=== PATIENT | male | born 1970 | race Caucasian/White ===

== ENCOUNTER 2020-03-25 11:55 | Observation (INO) | payer BC, OTHER, SELFPAY ==
[~2020-03-25] VITALS: Ht 185.4 cm; Wt 175.6 kg
--- NOTE | 2020-03-25 12:46 | NUR ---
PT AMBULATORY TO ROOM 6 W/ NO COMPLAINTS TODAY. STATES YESTERDAY HAD CP AND HTN. FIRE WAS CALLED AND PT GOT BP CONTROLLED AND NO LONGER HAS SX. STATES HE IS HERE TODAY "TO MAKE MY HAPPY". DENIES ANY SX AT THIS TIME. MONITORS APPLIED. PT RESTING ON GURMOHAN. NADN. VSS. PIV INITIATED.
--- NOTE | 2020-03-25 12:56 | NUR ---
REPORT GIVEN TO CHANEL DOZIER.
--- NOTE | 2020-03-25 13:24 | NUR ---
PT RESTING, WATCHING TV. CALL LIGHT IN REACH. DENIES CP
[2020-03-25 13:53] LABS: BASOPHILS % (AUTO) 2 % (0-1); EOSINOPHILS % (AUTO) 1 % (1-7); LYMPHOCYTES % (AUTO) 29 % (22-44); MEAN CORPUSCULAR HEMOGLOBIN 29.6 pg (27.5-34.5); MEAN CORPUSCULAR HGB CONC 33.3 g/dL (33.2-36.2); MEAN PLATELET VOLUME 8.3 fL (7.4-10.4); MONOCYTES % (AUTO) 6 % (2-9); NEUTROPHILS % (AUTO) 62 % (42-75); PLATELET COUNT 206 x10^3/uL (130-400); RED BLOOD COUNT 5.38 x10^6/uL (4.38-5.82); RED CELL DISTRIBUTION WIDTH 13.8 % (9.4-14.8)
[2020-03-25] MEDS ORDERED: ASPIRIN 81 MG TABLET CHEW ONE (13:53)
[2020-03-25 13:56] LABS: MD NO
[2020-03-25] MEDS ORDERED: METO-93 PO (13:58)
[2020-03-25] MEDS ORDERED: TELM1TAB42 PO (13:58)
--- NOTE | 2020-03-25 13:59 | NUR ---
ASSUMED CARE OF PATIENT. REPORT GIVEN TO CHANEL KEITH
[2020-03-25] MEDS ORDERED: ASPIRIN 81 MG TABLET CHEW PO ONE (14:00)
[2020-03-25 14:05] LABS: ALANINE AMINOTRANSFERASE 56 U/L (12-78); ALBUMIN 3.8 g/dL (3.4-5.0); ANION GAP 8 mmol/L (5-15); CHLORIDE 107 mmol/L (98-107); CREATININE 0.97 mg/dL (0.7-1.3)
[2020-03-25 14:09] LABS: ALKALINE PHOSPHATASE 73 U/L (45-117); BILIRUBIN,TOTAL 0.4 mg/dL (0.2-1.0); TOTAL PROTEIN 7.3 g/dL (6.4-8.2); TROPONIN I 0.024 ng/mL (0.000-0.045)
--- NOTE | 2020-03-25 14:53 | NUR ---
DR GIRALDO HAS UPDATED PATIENT. VS STABLE. LOG SAWYER ON. CALL LIGHT IN PLACE. WILL CONTINUE TO MONITOR.
--- NOTE | 2020-03-25 15:22 | NUR ---
PT WATCHING TV IN ROOM. MANAGER ORACLE RETAIL ON. NSR NOTED. CALL LIGHT IN PACE. WILL CONTINUE TO MONITOR.
--- NOTE | 2020-03-25 16:03 | NUR ---
LAB DRAWN. PT WATCHING TV IN ROOM. NO ACUTE DISTRESS NOTED. WILL CONTINUE TO MONITOR.
[2020-03-25 16:11] LABS: TROPONIN I 0.033 ng/mL (0.000-0.045)
--- NOTE | 2020-03-25 17:04 | NUR ---
TASK RN ASSISTING PRIMARY RN RAMONA. PT RESTING COMFORTABLY ON ED GURNEY, TALKING ON CELL PHONE. DENIES CP, SOB OR ANY PAIN. VSS. SR ON MONITOR. DR. GIRALDO HAS RE-EVALUATED PT, TO BE ADMITTED PER MD, PT AGREES TO POC AND VERBALIZED UNDERSTANDING. PT REQUESTING NICOTINE PATCH, TO DISCUSS WITH DR. GIRALDO. CALL LIGHT IN REACH. FALL PRECAUTIONS IN PLACE. DENIES NEED TO USE RESTROOM. A&OX4.
--- NOTE | 2020-03-25 17:19 | NUR ---
DISCUSSED PT REQUEST FOR NICOTINE PATCH WITH PRIMARY CHANEL GREENE AND DR. MCCOY. RAMONA RN TO FOLLOW UP WITH ERP. REPORT AND CARE BACK TO PRIMARY CHANEL GREENE
[2020-03-25] MEDS ORDERED: SODIUM CHLORIDE FLUSH 10ML SYR IVF PRN (17:30)
[2020-03-25] MEDS ORDERED: NICOTINE 21 MG/24 HR PATCH.TD24 TD ONE (18:00)
[2020-03-25] MEDS ORDERED: NICOTINE 21 MG/24 HR PATCH.TD24 ONE (18:02)
--- NOTE | 2020-03-25 18:10 | NUR ---
TASK RN ASSISTING PRIMARY CHANEL GREENE. PT MEDICATED PER REQUEST WITH NICOTINE PATCH TO RIGHT ARM. AMBULATED TO RESTROOM WITH STEADY GAIT. RESTING COMFORTABLY BACK ON ED GURNEY. PT REQUESTING FOOD, DISCUSSED WITH DR. GIRALDO. CARDIAC DIET RQUESTED FROM DIET OFFICE PER MD ORDER. VSS. SR ON MONITOR. PT DENIES ANY PAIN, CP, SOB. WATCHING TV. CALL LIGHT IN REACH. FALL PRECUATIONS IN PLACE. REPORT AND CARE BACK TO PRIMARY CHANEL GREENE. CONTINUE AWAITING ROOM ON FLOOR.
--- NOTE | 2020-03-25 18:41 | NUR ---
TASK RN. ADMITTING PROVIDER AT BEDSIDE FOR EVALUATION. PROVIDED MEAL TRAY PER ERP AND ADMIT MD FINK. PT EATING WITHOUT ANY DIFFICULTY. VSS. SR ON MONITOR. DENIES ANY CP, SOB. REPORT AND CARE TO PRIMARY RN RAMONA.
--- NOTE | 2020-03-25 18:50 | NUR ---
TASK RN ASSISTING PRIMARY RN RAMONA. ATTEMPT X1 TO CALL REPORT ON PT
[2020-03-25 19:34] VITALS: BP 139/67
[2020-03-25] MEDS ORDERED: LIDODERM 5% PATCH TD PRN (21:00)
[2020-03-25] MEDS ORDERED: BISACODYL 10 MG SUPP PR PRN (21:00)
[2020-03-25] MEDS ORDERED: ENOXAPARIN 40 MG/0.4 ML SQ SCH (21:00)
[2020-03-25] MEDS ORDERED: NITROGLYCERIN 0.4 MG BOTTLE (25 TABS) SL PRN (21:00)
[2020-03-25] MEDS ORDERED: morphine SULFATE 10 MG/ML, 1ML IVPush PRN (21:00)
[2020-03-25] MEDS ORDERED: ONDANSETRON 2MG/ML, 2ML IVPush PRN (21:00)
[2020-03-25] MEDS ORDERED: MELATONIN 5 MG TABLET PO PRN (21:00)
[2020-03-25] MEDS ORDERED: ACETAMINOPHEN 325 MG TABLET PO PRN (21:00)
[2020-03-25 22:32] LABS: TROPONIN I 0.022 ng/mL (0.000-0.045)
[2020-03-26] MEDS ORDERED: ALLO100T30 PO (01:49)
[2020-03-26 02:57] VITALS: BP 144/86
[2020-03-26 05:41] LABS: BASOPHILS % (AUTO) 1 % (0-1); EOSINOPHILS % (AUTO) 2 % (1-7); LYMPHOCYTES % (AUTO) 31 % (22-44); MEAN CORPUSCULAR HEMOGLOBIN 29.8 pg (27.5-34.5); MEAN CORPUSCULAR HGB CONC 33.4 g/dL (33.2-36.2); MEAN PLATELET VOLUME 7.9 fL (7.4-10.4); MONOCYTES % (AUTO) 5 % (2-9); NEUTROPHILS % (AUTO) 61 % (42-75); PLATELET COUNT 187 x10^3/uL (130-400); RED BLOOD COUNT 5.47 x10^6/uL (4.38-5.82); RED CELL DISTRIBUTION WIDTH 14.1 % (9.4-14.8)
[2020-03-26 05:43] LABS: MD NO
[2020-03-26 05:53] LABS: ANION GAP 6 mmol/L (5-15); CHLORIDE 107 mmol/L (98-107); CREATININE 0.95 mg/dL (0.7-1.3)
[2020-03-26] MEDS ORDERED: ASPIRIN 325 MG TABLET EC PO SCH (06:00)
[2020-03-26 06:56] VITALS: BP 156/82
[2020-03-26] MEDS ORDERED: REGADENOSON 0.4 MG/5 ML SYRINGE ONE (08:12)
[2020-03-26] MEDS ORDERED: LOSARTAN 100 MG TAB PO SCH (09:00)
[2020-03-26] MEDS ORDERED: METOPROLOL SUCCINATE 50 MG TAB.ER.24H PO SCH (09:00)
[2020-03-26] MEDS ORDERED: AMLODIPINE 5 MG TABLET PO SCH (09:00)
[2020-03-26] MEDS ORDERED: TELM1TAB PO (13:24)
[2020-03-26] MEDS ORDERED: NITR0.4T28 SL (13:24)
[2020-03-26] MEDS ORDERED: METO-93 PO (13:24)
[2020-03-26] MEDS ORDERED: ASPI81TA45 PO (13:26)
[2020-03-26] MEDS ORDERED: ATOR40TA78 PO (13:26)
[2020-03-27] MEDS ORDERED: AMLODIPINE 10 MG TAB PO SCH (09:00)
== END 2020-03-26 14:48 | disposition home or self-care (01) ==
LOC: ED 14:54 → EDIP 17:12 → INTOOBSV 17:12 → 5SO 19:30 → DCLOUNGE 03-26 14:07
PROVIDERS: ADMIT Internal Medicine; ATTEND Internal Medicine
DX: R07.89 Other chest pain (principal); I10 Essential (primary) hypertension; R73.9 Hyperglycemia, unspecified; E66.01 Morbid (severe) obesity due to excess calories; G47.33 Obstructive sleep apnea (adult) (pediatric); M54.10 Radiculopathy, site unspecified; G89.29 Other chronic pain; M54.9 Dorsalgia, unspecified; E78.00 Pure hypercholesterolemia, unspecified; I20.0 Unstable angina; I16.0 Hypertensive urgency; F17.220 Nicotine dependence, chewing tobacco, uncomplicated; Z79.899 Other long term (current) drug therapy; Z79.82 Long term (current) use of aspirin; Z68.43 Body mass index [BMI] 50.0-59.9, adult; Z91.19 Patient's noncompliance with other medical treatment and regimen
CPT/HCPCS: 36415; 71045; 78452; 80048; 80053; 84443; 84484; 85025; 93005; 93017; 93306; 96372; 99285; A9502; G0378; J1650; J2785

== ENCOUNTER 2020-09-24 19:58 | Emergency (ER) | payer BC ==
[~2020-09-24] VITALS: Ht 188 cm; Wt 173.0 kg
[~2020-09-24 19:58] MED LIST: ALLO100T30 PO; ASPI81TA45 PO; ATOR40TA78 PO; METO-93 PO; NITR0.4T28 SL; TELM1TAB PO; TELM1TAB42 PO
[2020-09-24 20:02] VITALS: BP 132/87
--- NOTE | 2020-09-24 22:34 | NUR ---
NON-ADHERANT DRESSINGS TO RIGHT LOWER LEG. EDUCATION PROVIDED TO PATIENT.
--- NOTE | 2020-09-24 22:34 | NUR ---
Patient given discharge instructions and they have confirmed that they understand the instructions. Patient ambulatory with steady gait. NAD, all questions answered appropriately, denies additional needs at this time. No personal belongings left in room after discharge.
== END 2020-09-24 22:41 | disposition home or self-care (01) ==
LOC: ED 20:42
DX: L03.115 Cellulitis of right lower limb (principal); R60.0 Localized edema; I10 Essential (primary) hypertension; E78.00 Pure hypercholesterolemia, unspecified
CPT/HCPCS: 99284